=== PATIENT | female | born 1955 | race Caucasian/White ===

== ENCOUNTER → 2019-12-19 14:36 | Outpatient (BNVA) | payer MEDICARE, MEDICAID, SELFPAY | PROVIDERS: PCP Family Medicine; Referring Provider Family Medicine; Visit Provider Internal Medicine Cardiovascular Disease | DX: I10 Essential (primary) hypertension (principal); Z82.49 Family history of ischemic heart disease and other diseases of the circulatory system | CPT/HCPCS: 99212 ==

== ENCOUNTER → 2020-01-29 09:34 | Outpatient (BNVA) | payer MEDICARE, MEDICAID, SELFPAY | PROVIDERS: PCP Family Medicine; Visit Provider Surgery Vascular Surgery | DX: I83.11 Varicose veins of right lower extremity with inflammation (principal) | CPT/HCPCS: 99202 ==

== ENCOUNTER 2020-02-06 10:38 | Outpatient (REF) | payer MEDICARE, MEDICAID, SELFPAY ==
--- NOTE | 2020-02-06 10:43 | US_ITS ---
EXAMINATION: US VENOUS ULTRASOUND WITH DOPPLER LOWER EXTREMITY, BILATERAL CLINICAL INFORMATION: Varicose veins. COMPARISON: None TECHNIQUE: Ultrasound of the deep veins is performed from the hip to the calf with compression sonography and color and pulse Doppler assessment. Spectral analysis with color-flow imaging is performed. FINDINGS: RIGHT: There is normal venous compression and respiratory variation and augmented flow. The visualized common femoral vein, superficial femoral vein, profunda femoral vein, popliteal vein, and the trifurcation region shows no evidence of deep venous thrombosis. There is no significant popliteal fossa cyst. Patient has bilateral ablation of superficial veins. LEFT: There is normal venous compression and respiratory variation and augmented flow. The visualized common femoral vein, superficial femoral vein, profunda femoral vein, popliteal vein, and the trifurcation region shows no evidence of deep venous thrombosis. There is no significant popliteal fossa cyst. History of bilateral ablation of superficial veins. If the patient's symptoms persist, followup ultrasound in 5 days 7 days might be of value to exclude proximal propagation from a non-visualized calf vein. US/US venous duplex LE BI IMPRESSION: No DVT demonstrated. Patient has bilateral ablation thrombosis of superficial veins.
== END 2020-02-06 10:39 | disposition home or self-care (01) ==
LOC: HO.US 10:38
PROVIDERS: PCP Family Medicine; Visit Provider Surgery Vascular Surgery
DX: I83.11 Varicose veins of right lower extremity with inflammation (principal); I83.813 Varicose veins of bilateral lower extremities with pain
CPT/HCPCS: 93970

== ENCOUNTER 2020-03-19 10:28 | Outpatient (REF) | payer MEDICARE, MEDICAID, SELFPAY ==
[2020-03-19 12:34] LABS: MANUAL DIFF FLAG NO
[2020-03-19 12:40] LABS: Basophils Percent Auto 0.4 % (0-2); Eosinophils Percent Auto 0.4 % (0-4); Hematocrit 38.8 % (37-47); Hemoglobin 12.8 g/dl (12.0-16.0); Imm Gran Abs Auto 0.01 X10*3/uL (0.00-0.03); Imm Gran Pct Auto 0.2 % (0.0-0.4); Lymphocytes Absolute Auto 1.4 X10*3/uL (1.2-4.9); Lymphocytes Percent Auto 27.9 % (20-40); Mean Corpuscular Hemoglobin 30.6 pg (27.0-33.0); Mean Corpuscular Volume 92.8 fL (80-98); Mean Platelet Volume 9.4 fL (9.4-12.3); Monocytes Absolute Auto 0.4 X10*3/uL (0.1-1.2); Monocytes Percent Auto 9.1 % (2-11); Platelet Count 284 X10*3/uL (160-400); Red Blood Count 4.18 X10*6/uL (4.20-5.50); Red Cell Distribution Width 12.1 % (11.0-16.0); White Blood Count 4.8 X10*3/uL (4.8-10.8)
[2020-03-19 12:54] LABS: Glucose Urine UA NEG (NEG); Leukocyte Esterase Urine NEG (NEG); Nitrite Urine NEG (NEG); PH 6.5 (5.0-8.0); Specific Gravity - Urine 1.025 (1.005-1.025); Urine Blood NEG (NEG); Urine Ketones NEG (NEG); Urine Protein NEG (NEG-TRACE)
[2020-03-19 12:56] LABS: Appearance Urine CLEAR; Color Urine YELLOW
[2020-03-19 13:08] LABS: Alanine Aminotransferase 18 U/L (0-31); Albumin Level 4.2 g/dL (3.5-5.0); Alkaline Phosphatase 75 U/L (39-117); Anion Gap 12 (12-20); Aspartate Amino Transferase 25 U/L (5-31); Bilirubin Total 1.1 mg/dL (0.0-1.0); Blood Urea Nitrogen 16 mg/dL (9-16); C Reactive Protein 0.19 mg/dL (< or = 0.50); Calcium 9.3 mg/dL (8.4-10.2); Carbon Dioxide 31 mmol/L (22-29); Chloride 99 mmol/L (96-108); Estimated Glomerular Filt Rate > 60; Glucose Random 118 mg/dL (60-115); Potassium 3.8 mmol/L (3.3-5.1); Rheumatoid Factor < 15.0 IU/mL (<15.0); Sodium 138 mmol/L (135-145); Total Protein 7.2 g/dL (6.5-8.0)
[2020-03-19 13:11] LABS: RBC Urine 0 /HPF (0); Squamous Epithelial Cell Urine 1+ /LPF; WBC Urine 0 /HPF (0-4)
[2020-03-19 13:23] LABS: Erythrocyte Sedimentation Rate 8 MM/HR (0-20); Thyroid Stimulating Hormone 1.18 uIU/mL (0.32-4.0)
[2020-03-20 06:28] LABS: Thyroglobulin Antibodies <1 IU/mL (< or = 1); Thyroid Peroxidase Antibodies <1 IU/mL (<9)
[2020-03-20 12:21] LABS: PTT (LAC) Screen 26 sec (< OR = 40)
[2020-03-20 13:33] LABS: Anti DNA DS Antibody 7 IU/mL; Antibody to SS-A Antigen <1.0 NEG AI (<1.0 NEG); Antibody to SS-B Antigen <1.0 NEG AI (<1.0 NEG); Cyclic Citrullinated Peptide <16 UNITS; SM/Ribonucleoprotein Ab <1.0 NEG AI (<1.0 NEG); Smith Protein <1.0 NEG AI (<1.0 NEG)
[2020-03-20 13:57] LABS: Complement C3 85 mg/dL (83-193)
[2020-03-20 16:42] LABS: Beta-2 Microglobulin, Serum 1.89 mg/L (< OR = 2.51)
[2020-03-21 11:12] LABS: Anti Nuclear Antibody Screen NEGATIVE (NEGATIVE)
[2020-03-21 15:56] LABS: Cardiolipin IgG Ab <14 GPL; Cardiolipin IgM Ab <12 MPL
== END 2020-03-19 10:29 | disposition home or self-care (01) ==
LOC: HO.LAB 10:28
PROVIDERS: PCP Family Medicine; Referring Provider Family Medicine; Visit Provider Student in an Organized Health Care Education/Training Program
DX: R76.8 Other specified abnormal immunological findings in serum (principal)
CPT/HCPCS: 36415; 80053; 81001; 82232; 84443; 85025; 85597; 85613; 85652; 85730; 86038; 86039; 86140; 86147; 86160; 86200; 86225; 86235; 86376; 86431; 86800; 99202

== ENCOUNTER → 2020-04-17 14:56 | Outpatient (BNVA) | payer MEDICARE, MEDICAID, SELFPAY | PROVIDERS: PCP Family Medicine; Visit Provider Student in an Organized Health Care Education/Training Program | DX: R76.8 Other specified abnormal immunological findings in serum (principal); Z79.82 Long term (current) use of aspirin; Z87.891 Personal history of nicotine dependence | CPT/HCPCS: 99212 ==

== ENCOUNTER 2020-05-05 07:26 | Outpatient (REF) | payer MEDICARE, MEDICAID, SELFPAY | END 2020-05-05 07:27 | disposition home or self-care (01) | LOC: HO.HOSX 07:26 | PROVIDERS: Visit Provider Orthopaedic Surgery | DX: Z13.89 Encounter for screening for other disorder (principal) ==

== ENCOUNTER 2021-03-11 12:18 | Outpatient (REF) | payer MEDICARE, MEDICAID, SELFPAY ==
--- NOTE | ~2021-03-11 | MM_ITS ---
EXAMINATION: MM SCREENING DIGITAL BREAST TOMOSYNTHESIS, BILATERAL CLINICAL INFORMATION: Screening. Asymptomatic. The lifetime risk of breast cancer based on the Tyrer-Cuzick Model is 6%. COMPARISON: Mammography: 09/17/2019, 09/10/2019, 09/04/2018, 05/25/2017 TECHNIQUE: Digital breast tomosynthesis is performed in both the craniocaudal and mediolateral oblique views along with computer-aided detection (CAD). Synthesized 2D images are generated from the tomosynthesis. FINDINGS: There are scattered areas of fibroglandular density (ACR BI-RADS breast composition Category b). There are no significant masses, abnormal calcifications, or other abnormalities. Parenchymal pattern is similar to prior studies. There is no developing density or architectural abnormality. The axilla and skin contours are unremarkable. No significant changes. MM/MM tomosynthesis screening BI IMPRESSION: No mammographic evidence of malignancy. ASSESSMENT: BI-RADS 1: Negative RECOMMENDATION: Routine annual mammography screening. This patient's information was entered into a reminder system with a target due date for their next mammogram.
== END 2021-03-11 12:19 | disposition home or self-care (01) ==
LOC: HO.MAMMO 12:18
PROVIDERS: PCP Family Medicine; Visit Provider Family Medicine
DX: Z12.31 Encounter for screening mammogram for malignant neoplasm of breast (principal)
CPT/HCPCS: 77063; 77067

== ENCOUNTER 2021-03-16 07:09 | Outpatient (REF) | payer MEDICARE, MEDICAID, SELFPAY ==
--- NOTE | ~2021-03-16 | XR_ITS ---
EXAMINATION: XR SHOULDER , LEFT CLINICAL INFORMATION: Pain COMPARISON: Prior study 2017 TECHNIQUE: AP, scapular Y view and axillary view left shoulder FINDINGS: BONES: There is no fracture or dislocation, no osteolytic or osteoblastic lesion. JOINTS: There are degenerative osteoarthritic changes of the glenohumeral joint. There is mild degenerative osteoarthritis of the acromioclavicular joint. SOFT TISSUE AND INCLUDED LUNG: Normal soft tissue calcification. Included adjacent lungs are clear. XR/XR shoulder LT min 2V IMPRESSION: Progression of now early advanced degenerative osteoarthritis of the glenohumeral and acromioclavicular joints.
== END 2021-03-16 07:10 | disposition home or self-care (01) ==
LOC: HO.HOSX 07:09
PROVIDERS: Visit Provider Physician Assistant
DX: M19.012 Primary osteoarthritis, left shoulder (principal); M54.50 Low back pain, unspecified
CPT/HCPCS: 20610; 73030; 99202; J1040

== ENCOUNTER 2021-04-19 14:46 | Emergency (ER) | payer MEDICARE, MEDICAID, SELFPAY ==
--- NOTE | ~2021-04-19 | CT_ITS ---
EXAMINATION: CT HEAD WITHOUT CONTRAST CT CERVICAL SPINE WITHOUT CONTRAST CT FACIAL BONES WITHOUT CONTRAST CLINICAL INFORMATION: Fall. Head trauma. Left ocular contusion. Pain. COMPARISON: None TECHNIQUE: Contiguous axial imaging was performed from the skull base to vertex without intravenous administration of contrast. Contiguous axial CT images of the cervical spine were obtained without contrast. Contiguous axial CT images of the maxillofacial bones were obtained without contrast. Sagittal and coronal reformats were provided and reviewed. This CT examination was performed using dose optimization techniques as appropriate, variously including the following: *Automated exposure control *Adjustment of mA and/or kV according to patient size (this includes techniques or standardized protocols for targeted exams where dose is matched to indication/reason for exam; i.e. extremities or head) *Use of iterative reconstruction technique DLP: 1537 mGy-cm FINDINGS: HEAD: There is no evidence of acute intracranial hemorrhage or territorial infarction. No abnormal mass effect or midline shift is seen. [place] to white matter differentiation is well preserved. No extra-axial fluid collections are identified. The ventricles are normal in size. There is no abnormal attenuation within the brain parenchyma. Soft tissue swelling/hematoma overlying the left frontal calvarium. No calvarial fracture. The mastoid air cells and visualized portions of the paranasal sinuses are well aerated. CERVICAL SPINE: Reversal of the normal cervical lordosis, which may be positional or related to muscular spasm. Minimal grade 1 anterolisthesis of C3 on C4, which appears chronic. No acute fracture or subluxation. No loss of vertebral body height. Multilevel loss of intervertebral disc height with endplate osteophytes. Prominent multilevel bilateral facet arthropathy. No lytic or blastic osseous lesion. Unremarkable prevertebral soft tissues. No abnormal soft tissue mass or fluid collection. Thyroid within normal limits. Visualized lung apices are clear. Prominent multilevel bilateral neural foraminal stenosis. MAXILLOFACIAL: There is no acute maxillofacial fracture. The pterygoid plates are intact. The zygomatic arches are intact. The lamina papyracea are intact. The orbital rims are intact. Prominent soft tissue swelling and associated soft tissue hematoma as well as laceration overlying the superior aspect of the left orbit. The paranasal sinuses are well-aerated. No air-fluid levels are seen. There is rightward deviation of the nasal septum. The ostiomeatal complexes are clear. The lamina papyracea are intact. The ethmoid roofs are symmetric. The carotid canals are normally covered by bone. There is no maxillary periapical disease. The mastoid air cells and visualized middle ear cavities are well-aerated. The orbits are normal. The TMJs are unremarkable. The imaged portions of the brain demonstrate no acute abnormality. CT/CT cervical spine wo con IMPRESSION: HEAD: No acute intracranial hemorrhage or mass effect. CERVICAL SPINE: No acute fracture or subluxation. Reversal of the normal cervical lordosis, which may be positional. Chronic appearing grade 1 anterolisthesis of C3 on C4. Prominent multilevel degenerative disc disease and bilateral facet arthropathy with multilevel bilateral neural foraminal stenosis. FACIAL BONES: Left frontal/orbital soft tissue hematoma and laceration without adjacent fracture.
--- NOTE | ~2021-04-19 | XR_ITS ---
EXAMINATION: XR CHEST CLINICAL INFORMATION: Dizziness with fall COMPARISON: 07/01/2012 TECHNIQUE: Frontal view of the chest was obtained. FINDINGS: No significant abnormality is noted involving the heart, lungs, mediastinum, bony thorax or soft tissues. Degenerative changes are present in both shoulders progressed since 2012. No fractures. XR/XR chest 1V IMPRESSION: No acute intrathoracic disease.
--- NOTE | 2021-04-19 15:12 | ECG_ITS ---
Test Reason : FALL Blood Pressure : / mmHG Vent. Rate : 077 BPM Atrial Rate : 077 BPM P-R Int : 184 ms QRS Dur : 104 ms QT Int : 400 ms P-R-T Axes : 062 028 068 degrees QTc Int : 452 ms Normal sinus rhythm Normal ECG When compared with ECG of 15-MAY-2013 11:52, No significant change was found Referred By: Jory Bejarano Electronically Signed By:HUSAM HAWLEY MD
[2021-04-19 15:14] VITALS: BP 108/76; BP 141/70; PULSE 74; PULSE 78; RESP 18; TEMP 36.8; O2SAT 97; O2SAT 98; BMI 32.0
[2021-04-19] MEDS: 0.9 % Sodium Chloride 1,000 ML 999 ML IV (15:24)
--- NOTE | 2021-04-19 15:44 | ED.FALL ---
HPI - Fall General Chief Complaint: Fall Stated Complaint: contusion l eye Time Seen by Provider: 04/19/21 14:53 Source: patient and EMS Mode of arrival: EMS History of Present Illness HPI Narrative: 65-year-old female with a past medical history cardiac catheterization, HTN, presenting to the ED complaining of left periorbital swelling/pain & left elbow pain s/p fall at home [employer]. Patient reports was walking down ramp felt dizzy and fell, hitting head, unknown LOC. Also reports fall yesterday, unclear about the events, but admits fell on buttocks, unknown head trauma. Takes baby ASA daily. Denies vision change/loss, neck/back pain, CP/SOB, numbness/tingling MD complaint: fall Onset (ago): hour(s) Related Data Home Medications Medication Instructions Recorded Confirmed aspirin 81 mg tablet,delayed 81 mg PO DAILY 12/19/19 release atorvastatin 20 mg tablet 20 mg PO DAILY 12/19/19 bupropion HCl 300 mg 24 hr tablet, 300 mg PO QAM 12/19/19 extended release cholecalciferol (vitamin D3) 50 50 mcg PO DAILY 12/19/19 mcg (2,000 unit) tablet gabapentin 300 mg capsule 300 mg PO BID 12/19/19 hydrochlorothiazide 25 mg tablet 25 mg PO DAILY 12/19/19 lisinopril 5 mg tablet 5 mg PO DAILY 12/19/19 loratadine 10 mg tablet 10 mg PO DAILY 12/19/19 clonazepam 0.5 mg tablet 1 mg PO BEDTIME tab 03/19/20 Allergies Allergy/AdvReac Type Severity Reaction Status Date / Time pollen Allergy Intermediate Sneezing,co Uncoded 03/16/21 11:51 ngestion Review of Systems Review of Systems: Constitutional: No Fever, No Chills, No Fatigue, No Malaise ENT/Mouth: No Ear Pain, No Nasal Congestion, No sore throat, No Rhinorrhea, No Swallowing Difficulty Eyes: No Eye Pain, + Swelling, No Redness, No Discharge, No Vision Changes Cardiovascular: No Chest Pain, No SOB, No Dyspnea on Exertion, No Edema, No Palpitations Respiratory: No Cough, No Sputum, No Dyspnea Gastrointestinal: No Nausea, No Vomiting, No Diarrhea, No Constipation, No Abdominal pain Genitourinary: No Dysuria, No Urinary Frequency, No Hematuria, No Urinary Incontinence, No Flank Pain, No Urinary Flow Changes Musculoskeletal: +joint pain, No Myalgias, No Joint Swelling Skin: +Skin Lesions, No rash Neuro: No Weakness, No Numbness, No Loss of Consciousness, No Dizziness, +Headache Yes all other systems are reviewed and are negative Neurologic: Denies Abnormal speech present [facility] Past Medical History Attestation statement: The following information was validated with the patient. Medical History NIRAV positive Family history of coronary arteriosclerosis Hypertension Surgical History H/O section History of cardiac cath History of carpal tunnel release History of esophagogastroduodenoscopy (EGD) History of partial hysterectomy History of tubal ligation Family History Family History Father CVD (cardiovascular disease) Mother CVD (cardiovascular disease) Social History Social History Alcohol intake: never Advance Directives: No Advance Directives Information Provided: No Current occupational status: disabled Current occupation: rt handed Physical Exam Vital Signs: Vital Signs: Last Vital Signs Temp 98.2 F 04/19/21 15:14 Pulse 77 04/19/21 16:01 Resp 18 04/19/21 16:01 BP 153/72 H 04/19/21 16:01 Pulse Ox 99 04/19/21 16:01 BMI result Body Mass Index 32.0 Const: General: cooperative, alert and awake Orientation/consciousness: patient oriented x3 Limitations: no limitations HENMT: Other: + left supraorbital hematoma with overlying abrasion and small 1.0cm superficial laceration non needing repair. No palpable step-off. Abrasions to nasal bridge, left cheek, and forehead Ears: hearing grossly normal bilaterally General nose exam: Normal external nose present Face and sinus: Yes ecchymosis Throat: Yes posterior oropharynx normal Eyes: Other: EOMs intact without entrapment or pain. No appreciable ocular involvement General: appearance normal, both eyes and all related structures Pupils: Equal, round and reactive pupils present EOM: EOMs intact bilaterally and EOM normal Direct Ophthalmoscopy: normal light reflex Neck: Other: C-collar in place. No midline cervical spinous tenderness/step-off or deformity Neck: Yes normal visual inspection Chest: Chest palpation & inspection: normal inspection of the chest, no crepitus and no tenderness Resp: Effort & Inspection: normal respiratory effort and no respiratory distress Auscultation: clear to auscultation bilaterally, no rales, no rhonchi and no wheezes Cardio: Rate: regular rate Heart sounds: S1 normal heart sound present and S2 normal heart sound present GI: Inspection: Yes normal to inspection Palpation (GI): Soft to palpation, nontender, no guarding and not rigid : General: Yes no CVA tenderness Back/Spine/Pelvis: Other: No midline thoracic/lumbar or coccygeal spinous tenderness/step-off or deformity. Back: no CVA tenderness Skin: Other: + 2 small abrasions and ecchymosis noted to right buttock Rashes: no rashes Neuro: General: patient oriented x3, tone normal, moves all extremities, no focal motor deficits and CN's II-XI intact bilaterally Cranial nerves: Yes CN's II-XII intact bilaterally, Yes Equal, round and reactive pupils present and Yes Bilaterally intact EOM present Cognition (Neuro): normal cognition Speech: No Abnormal speech present Gait exam (Neuro): Normal gait present Motor exam (neuro): 5/5 motor strength present throughout Extrem: General: Yes normal to inspection and Yes no pedal edema Course Course Course Narrative: -UA negative -1706--no leukocytosis. H&H stable. Labs otherwise unremarkable. COVID-19 negative -troponin 8.2 >> will obtain [address] head/brain wo con IMPRESSION: HEAD: No acute intracranial hemorrhage or mass effect. ? CERVICAL SPINE: No acute fracture or subluxation. Reversal of the normal cervical lordosis, which may be positional. Chronic appearing grade 1 anterolisthesis of C3 on C4. Prominent multilevel degenerative disc disease and bilateral facet arthropathy with multilevel bilateral neural foraminal stenosis. ? FACIAL BONES: Left frontal/orbital soft tissue hematoma and laceration without adjacent fracture. >> discussed with patient PT evaluation/case management at length with daughter at bedside, however she is not agreeable and would like to go home. Patient lives with daughter and granddaughter. Discussed risks recurrent falls, , paralysis, is A&O x3 understands risks of leaving -1800--ED care transferred to NIKOLAS Zhang pending repeat troponin @1938, CXR and orthostatics. Dispo per results, but anticipated DC home as patient not agreeable to stay and does not meet inpatient criteria MDM - Fall MDM Narrative Medical decision making narrative: 65-year-old female with a past medical history cardiac catheterization, HTN, presenting to the ED complaining of left periorbital swelling/pain & left elbow pain s/p fall at home [employer]. Patient reports was walking down ramp felt dizzy and fell, hitting head, unknown LOC. On exam vital signs stable, NAD, physical exam as above. Concern for ICH versus fractures. No midline spinous tenderness throughout, no red flag symptoms. Concern for ACS vs metabolic vs infectious etiologies causing dizziness. Left eyebrow small laceration not needing repair. Tetanus up-to-date Plan: EKG, labs, UA, CXR, head/facial/cervical spine CT, orthostatics, re-evaluate Differential Diagnosis Differential diagnosis: Likely syncope, concussion with loss of consciousness and concussion without loss of consciousness Medical Records Attestation: I reviewed the patient's medical records. Lab Data Attestation: I reviewed the patient's lab results. Result diagrams: 04/19/21 16:38 04/19/21 16:38 Labs: Lab Results 04/19/21 04/19/21 04/19/21 Range/Units 16:05 16:05 16:38 WBC 8.7 (4.8-10.8) X10*3/uL RBC 3.91 L (4.20-5.50) X10*6/uL Hgb 12.1 (12.0-16.0) g/dl Hct 36.8 L (37.0-47.0) % MCV 94.1 (80.0-98.0) fL MCH 30.9 (27.0-33.0) pg MCHC 32.9 (31.0-35.0) g/dl RDW 12.3 (11.0-16.0) % Plt Count 281 (160-400) X10*3/uL MPV 9.0 L (9.4-12.3) fL Immature Gran % (Auto) 0.2 (0.0-0.4) % Neut % (Auto) 73.5 H (45-73) % Lymph % (Auto) 17.5 L (20-40) % [place] % (Auto) 8.0 (2-11) % Eos % (Auto) 0.5 (0-4) % Baso % (Auto) 0.3 (0-2) % Lymph # (Auto) 1.5 (1.2-4.9) X10*3/uL [place] # (Auto) 0.7 (0.1-1.2) X10*3/uL Eos # (Auto) 0.0 (0.0-0.4) X10*3/uL Baso # (Auto) 0.0 (0.0-0.2) X10*3/uL Abs Immat Gran (auto) 0.02 (0.00-0.03) X10*3/uL Absolute Neuts (auto) 6.4 (2.0-8.3) x10*3/uL Absolute Nucleated RBC 0.000 (0.0-0.012) X10*3/uL Nucleated RBC % (auto) 0.0 (0.0-0.2) /100WBC PT (9.9-13.0) SEC INR (0.9-1.1) APTT (24.1-38.0) SEC Sodium (135-145) mmol/L Potassium (3.3-5.1) mmol/L Chloride (96-108) mmol/L Carbon Dioxide (22-29) mmol/L Anion Gap (12-20) BUN (9-16) mg/dL Creatinine (0.5-1.4) mg/dL Estim Creat Clear Calc Estimated GFR Random Glucose (60-115) mg/dL Calcium (8.4-10.2) mg/dL Magnesium (1.6-2.6) mg/dL Total Bilirubin (0.0-1.0) mg/dL Direct Bilirubin (0.0-0.5) mg/dL AST (5-31) U/L ALT (0-31) U/L Alkaline Phosphatase (39-117) U/L Troponin I High Sens (<3.5-17.0) ng/L Total Protein (6.5-8.0) g/dL Albumin (3.5-5.0) g/dL Urine Color YELLOW Urine Appearance CLEAR Urine pH 6.5 (5.0-8.0) Ur Specific Devon 1.020 (1.005-1.025) Urine Protein TRACE (NEG-TRACE) MG/DL Urine Glucose (UA) NEG (NEG) MG/DL Urine Ketones NEG (NEG) MG/DL Urine Blood NEG (NEG) Urine Nitrite NEG (NEG) Ur Leukocyte Esterase NEG (NEG) COVID-19 (JAMARI) Negative (Negative) COVID-19 Clin Com See Note 04/19/21 04/19/21 04/19/21 Range/Units 16:38 16:38 16:38 WBC (4.8-10.8) X10*3/uL RBC (4.20-5.50) X10*6/uL Hgb (12.0-16.0) g/dl Hct (37.0-47.0) % MCV (80.0-98.0) fL MCH (27.0-33.0) pg MCHC (31.0-35.0) g/dl RDW (11.0-16.0) % Plt Count (160-400) X10*3/uL MPV (9.4-12.3) fL Immature Gran % (Auto) (0.0-0.4) % Neut % (Auto) (45-73) % Lymph % (Auto) (20-40) % [place] % (Auto) (2-11) % Eos % (Auto) (0-4) % Baso % (Auto) (0-2) % Lymph # (Auto) (1.2-4.9) X10*3/uL [place] # (Auto) (0.1-1.2) X10*3/uL Eos # (Auto) (0.0-0.4) X10*3/uL Baso # (Auto) (0.0-0.2) X10*3/uL Abs Immat Gran (auto) (0.00-0.03) X10*3/uL Absolute Neuts (auto) (2.0-8.3) x10*3/uL Absolute Nucleated RBC (0.0-0.012) X10*3/uL Nucleated RBC % (auto) (0.0-0.2) /100WBC PT 11.3 (9.9-13.0) SEC INR 1.0 (0.9-1.1) APTT 33.6 (24.1-38.0) SEC Sodium 140 (135-145) mmol/L Potassium 4.3 (3.3-5.1) mmol/L Chloride 103 (96-108) mmol/L Carbon Dioxide 33 H (22-29) mmol/L Anion Gap 8 L (12-20) BUN 10 (9-16) mg/dL Creatinine 0.68 (0.5-1.4) mg/dL Estim Creat Clear Calc 78.4 Estimated GFR > 60 Random Glucose 85 (60-115) mg/dL Calcium 9.2 (8.4-10.2) mg/dL Magnesium 2.1 (1.6-2.6) mg/dL Total Bilirubin 0.4 (0.0-1.0) mg/dL Direct Bilirubin 0.2 (0.0-0.5) mg/dL AST 16 (5-31) U/L ALT 13 (0-31) U/L Alkaline Phosphatase 89 (39-117) U/L Troponin I High Sens 8.2 (<3.5-17.0) ng/L Total Protein 6.4 L (6.5-8.0) g/dL Albumin 3.7 (3.5-5.0) g/dL Urine Color Urine Appearance Urine pH (5.0-8.0) Ur Specific Devon (1.005-1.025) Urine Protein (NEG-TRACE) MG/DL Urine Glucose (UA) (NEG) MG/DL Urine Ketones (NEG) MG/DL Urine Blood (NEG) Urine Nitrite (NEG) Ur Leukocyte Esterase (NEG) COVID-19 (JAMARI) (Negative) COVID-19 Clin Com Discharge Plan Discharge Clinical Impression: Periorbital hematoma of left eye, Multiple falls, Dizziness, Abrasion Patient Disposition: Still a Patient Instructions: Dizziness (ED), Fall Prevention (ED), Hematoma (ED) Additional Instructions: A CT scan of your head, neck, and facial bones show a left frontal/orbital hematoma and cut, otherwise no fractures or bleeding. Your blood work is reassuring. Her urine is not infected. We recommended you stay for physical therapy evaluation however you refused Please make sure your in taking plenty of fluids at home. Please walk with her walker. Please follow-up with her primary care doctor in 1-2 days. If you continue to feel dizzy, have recurrent falls, developed chest pain, shortness breath, headache please return to the ED immediately Apply bacitracin or Neosporin to her wounds Prescriptions: No Action loratadine 10 mg tablet 10 mg PO DAILY 0RF gabapentin 300 mg capsule 300 mg PO BID 0RF cholecalciferol (vitamin D3) 50 mcg (2,000 unit) tablet 50 mcg PO DAILY 0RF bupropion HCl 300 mg tablet extended release 24 hr 300 mg PO QAM 0RF hydrochlorothiazide 25 mg tablet 25 mg PO DAILY 0RF lisinopril 5 mg tablet 5 mg PO DAILY 0RF aspirin 81 mg tablet,delayed release (DR/EC) 81 mg PO DAILY 0RF atorvastatin 20 mg tablet 20 mg PO DAILY 0RF clonazepam 0.5 mg tablet 1 mg PO BEDTIME 0RF Referrals: Claudia Baum DO [Primary Care Provider] - 2 days
[2021-04-19 16:01] VITALS: BP 153/72; PULSE 77; RESP 18; O2SAT 99
[2021-04-19 16:16] LABS: Appearance Urine CLEAR; Color Urine YELLOW; Glucose Urine UA NEG (NEG); Leukocyte Esterase Urine NEG (NEG); Nitrite Urine NEG (NEG); PH 6.5 (5.0-8.0); Urine Blood NEG (NEG); Urine Ketones NEG (NEG); Urine Protein TRACE MG/DL (NEG-TRACE)
[2021-04-19 16:37] LABS: COVID-19 Test Negative (Negative); IDNOW Serial# 16C4AD1C
[2021-04-19 16:44] LABS: MANUAL DIFF FLAG NO
[2021-04-19 16:45] LABS: Basophils Percent Auto 0.3 % (0-2); Eosinophils Percent Auto 0.5 % (0-4); Hematocrit 36.8 % (37.0-47.0); Hemoglobin 12.1 g/dl (12.0-16.0); Imm Gran Abs Auto 0.02 X10*3/uL (0.00-0.03); Imm Gran Pct Auto 0.2 % (0.0-0.4); Lymphocytes Absolute Auto 1.5 X10*3/uL (1.2-4.9); Lymphocytes Percent Auto 17.5 % (20-40); Mean Corpuscular HGB Conc 32.9 g/dl (31.0-35.0); Mean Corpuscular Hemoglobin 30.9 pg (27.0-33.0); Mean Corpuscular Volume 94.1 fL (80.0-98.0); Monocytes Absolute Auto 0.7 X10*3/uL (0.1-1.2); Neutrophils Absolute Auto 6.4 x10*3/uL (2.0-8.3); Neutrophils Percent Auto 73.5 % (45-73); Platelet Count 281 X10*3/uL (160-400); Red Blood Count 3.91 X10*6/uL (4.20-5.50); Red Cell Distribution Width 12.3 % (11.0-16.0); White Blood Count 8.7 X10*3/uL (4.8-10.8)
[2021-04-19 16:52] LABS: Prothrombin Time 11.3 SEC (9.9-13.0)
[2021-04-19 16:55] LABS: Partial Thromboplastin Time 33.6 SEC (24.1-38.0)
[2021-04-19 17:03] LABS: Alanine Aminotransferase 13 U/L (0-31); Albumin Level 3.7 g/dL (3.5-5.0); Alkaline Phosphatase 89 U/L (39-117); Anion Gap 8 (12-20); Aspartate Amino Transferase 16 U/L (5-31); Bilirubin Direct 0.2 mg/dL (0.0-0.5); Bilirubin Total 0.4 mg/dL (0.0-1.0); Blood Urea Nitrogen 10 mg/dL (9-16); Calcium 9.2 mg/dL (8.4-10.2); Carbon Dioxide 33 mmol/L (22-29); Chloride 103 mmol/L (96-108); Creatinine Clr Calc Pharmacy 78.4; Estimated Glomerular Filt Rate > 60; Glucose Random 85 mg/dL (60-115); Magnesium 2.1 mg/dL (1.6-2.6); Potassium 4.3 mmol/L (3.3-5.1); Sodium 140 mmol/L (135-145); Total Protein 6.4 g/dL (6.5-8.0)
[2021-04-19 17:08] LABS: Troponin-I High Sensitivity 8.2 ng/L (<3.5-17.0)
[2021-04-19] MEDS: Acetaminophen 325 MG TABLET 975 MG PO (18:34)
[2021-04-19 18:47] VITALS: BP 140/66; PULSE 83
[2021-04-19 18:49] VITALS: BP 143/73; PULSE 80
[2021-04-19 18:51] VITALS: BP 148/70; PULSE 81
[2021-04-19 21:45] LABS: Troponin-I High Sensitivity 8.6 ng/L (<3.5-17.0)
== END 2021-04-19 22:07 | disposition home or self-care (01) ==
PROVIDERS: Physician Assistant; Emergency Provider Internal Medicine; PCP Family Medicine
DX: S05.12XA Contusion of eyeball and orbital tissues, left eye, initial encounter (principal); S10.91XA Abrasion of unspecified part of neck, initial encounter; H57.12 Ocular pain, left eye; R42 Dizziness and giddiness; M54.2 Cervicalgia; G44.309 Post-traumatic headache, unspecified, not intractable; W01.0XXA Fall on same level from slipping, tripping and stumbling without subsequent striking against object, initial encounter; Y93.9 Activity, unspecified; Y92.9 Unspecified place or not applicable; Y99.9 Unspecified external cause status; Z20.822 Contact with and (suspected) exposure to COVID-19; Z79.899 Other long term (current) drug therapy
CPT/HCPCS: 36415; 70450; 70486; 71045; 72125; 80048; 80076; 81003; 83735; 84484; 85025; 85610; 85730; 87635; 93005; 99284

== ENCOUNTER 2021-04-21 13:19 | Outpatient (REF) | payer MEDICARE, MEDICAID, SELFPAY ==
--- NOTE | ~2021-04-21 | XR_ITS ---
EXAMINATION: XR SHOULDER, LEFT CLINICAL INFORMATION: Left shoulder pain COMPARISON: Radiographs left shoulder 03/16/2021, 08/05/2016 TECHNIQUE: Radiographs of the left shoulder are obtained in 5 views. FINDINGS: There is no acute or healing fracture, dislocation, destructive process. Prominent osteoarthritic changes involve the glenohumeral joint with joint narrowing and subchondral sclerosis. There are osteophytes involving the humeral head and inferior medial and near the greater tuberosity. Lesser degenerative changes involve the acromioclavicular joint. The acromioclavicular alignment is normal. There are no visible rotator cuff calcifications. Left lung apex is well expanded and shows no pneumothorax or pleural reaction. There are prominent asymmetric bridging osteophytes right lateral thoracic spine again seen. XR/XR shoulder LT min 2V IMPRESSION: 1. Prominent osteoarthritis glenohumeral joint. 2. Mild osteoarthritic changes acromioclavicular joint.
== END 2021-04-21 13:20 | disposition home or self-care (01) ==
LOC: HO.XRAY 13:19
PROVIDERS: PCP Family Medicine; Visit Provider Family Medicine
DX: M25.512 Pain in left shoulder (principal)
CPT/HCPCS: 73030

== ENCOUNTER → 2021-05-12 11:48 | Outpatient (BNVA) | payer MEDICARE, MEDICAID, SELFPAY | PROVIDERS: PCP Family Medicine; Visit Provider Surgery Vascular Surgery | DX: I83.11 Varicose veins of right lower extremity with inflammation (principal) | CPT/HCPCS: 99212 ==

== ENCOUNTER 2021-06-02 14:11 | Outpatient (REF) | payer MEDICARE, MEDICAID, SELFPAY ==
--- NOTE | ~2021-06-02 | US_ITS ---
EXAMINATION: US EXTRACRANIAL CAROTID DUPLEX, BILATERAL CLINICAL INFORMATION: This is a 65-year-old female with dizziness and giddiness. Carotid artery disease. COMPARISON: None TECHNIQUE: Real-time ultrasound and Doppler techniques (integrating B-mode 2-D vascular images, Doppler spectral analysis and color-flow Doppler imaging) were utilized to interrogate the extracranial carotid arteries, the vertebral arteries and proximal subclavian arteries bilaterally. The degree of stenosis is determined by criteria similar to NASCET. FINDINGS: Right Side: 1. There is minimal atherosclerotic plaque seen in the bifurcation/proximal ICA region. 2. The common carotid artery PSV proximally is 86 cm/s and distally 48 cm/s. 3. The proximal internal carotid artery velocities are 67 cm/s systolic and 23 cm/s diastolic. 4. The proximal external carotid artery PSV is 93 cm/s. 5. The vertebral artery shows antegrade flow. 6. The subclavian artery waveforms are normal. Left Side: 1. There is minimal atherosclerotic plaque seen in the bifurcation/proximal ICA region. 2. The common carotid artery PSV proximally is 73 cm/s and distally 48 cm/s. 3. The proximal internal carotid artery velocities are 48 cm/s systolic and 16 cm/s diastolic. 4. The proximal external carotid artery PSV is 68 cm/s. 5. The vertebral artery shows antegrade flow. 6. The subclavian artery waveforms are normal. US/US carotid duplex BI IMPRESSION: 1. RIGHT: Minimal, non-hemodynamically significant stenosis of the proximal right internal carotid artery corresponding to a 0-49% stenosis by velocity criteria. 2. LEFT: Minimal, non-hemodynamically significant stenosis of the proximal left internal carotid artery corresponding to a 0-49% stenosis by velocity criteria.
--- NOTE | ~2021-06-02 | US_ITS ---
EXAMINATION: US LOWER EXTREMITY VENOUS (REFLUX EXAM), BILATERAL CLINICAL INDICATION: This is a 65-year-old female with venous insufficiency and varicose veins. The patient status post ablation. COMPARISON: None. TECHNIQUE: Color flow triplex imaging and compression Doppler was performed to evaluate both the deep and the superficial systems bilaterally. To evaluate the superficial system, the examination was performed in the upright position. Color-flow Doppler ultrasound and compression ultrasound were utilized. In addition, maneuvers were utilized to demonstrate reflux. FINDINGS: 1. DEEP VENOUS ULTRASOUND OF THE RIGHT LOWER EXTREMITY: Common Femoral Vein: Compressible, normal respiratory variation and augmented flow. Femoral vein: Compressible, normal color flow and augmentation. Popliteal Vein: Compressible, normal augmentation. Deep Reflux: There is no evidence of reflux in the deep system in either the common femoral vein or the popliteal vein. There is no evidence of a Sanchez's cyst. 2. SUPERFICIAL ULTRASOUND WITH DOPPLER OF RIGHT LOWER EXTREMITY: GREAT SAPHENOUS VEIN: Saphenofemoral Junction: 0.4 cm. There is no reflux. Mid Thigh: Not seen and possibly previously treated. Above Knee: Occluded consistent with previous ablation. Below Knee: Occluded consistent with previous ablation. Mid Calf: 0.2 cm. The reflux time is 1408 ms. Ankle: 0.2 cm. There is no reflux. GSV REFLUX: Portions of the right great saphenous vein are occluded. There is no significant reflux at the junction. DUPLICATED GREAT SAPHENOUS VEIN: None SMALL SAPHENOUS VEIN: Proximal: 0.3 cm Distal: 0.4 cm SSV REFLUX: No evidence of reflux. VEIN OF GIACOMINI: None Imaged. PERFORATORS: None Imaged VARICOSITIES: There are 0.2 cm varicose veins at the knee and the mid calf, respectively with greater than 2000 ms of reflux. 3. DEEP VENOUS ULTRASOUND OF THE LEFT LOWER EXTREMITY: Common Femoral Vein: Compressible, normal respiratory variation and augmented flow. Femoral Vein: Compressible, normal color flow and augmentation. Popliteal Vein: Compressible, normal augmentation. Deep Reflux: There is no evidence of reflux in the deep system in either the common femoral vein or the popliteal vein. There is no evidence of a Sanchez's cyst. 4. SUPERFICIAL ULTRASOUND WITH DOPPLER OF LEFT LOWER EXTREMITY: GREAT SAPHENOUS VEIN: Saphenofemoral Junction: 0.6 cm. There is no reflux. Mid Thigh: 0.3 cm. The reflux time is 3240 ms. Above Knee: 0.1 cm. There is no reflux. Below Knee: 0.1 cm. There is no reflux. Mid Calf: 0.2 cm. The reflux time is 3004 ms. Ankle: 0.1 cm. The reflux time is 1808 ms. GSV REFLUX: There is no reflux at the saphenofemoral junction. The great saphenous vein is occluded at the knee consistent with previous treatment. There is isolated reflux in the mid thigh. DUPLICATED GREAT SAPHENOUS VEIN: None SMALL SAPHENOUS VEIN: Proximal: 0.2 cm. There is no reflux to Distal: 0.2 cm. The reflux time is 3224 ms. SSV REFLUX: There is isolated mid calf and distal calf reflux but not at the junction. VEIN OF GIACOMINI: None Imaged. PERFORATORS: There is a 0.3 cm validation architect with reflux of 2852 ms. VARICOSITIES: There are 0.3 cm proximal thigh varicose veins without reflux. US/US venous duplex LE BI IMPRESSION: 1. There are portions of the right great saphenous vein which appear successfully treated and occluded. The proximal right great saphenous vein is patent without reflux at the junction. 2. The right small saphenous vein is patent without reflux. 3. There are varicose veins at the knee and calf with greater than 2 seconds of reflux. 4. There are segments of the left great saphenous vein which appear occluded consistent with previous treatment. There is no reflux seen at the junction. 5. There is a patent left small saphenous vein without reflux at the junction. The mid and distal left small saphenous vein demonstrate reflux. 6. There are proximal thigh varicose veins measuring 0.3 cm without reflux.
== END 2021-06-02 14:12 | disposition home or self-care (01) ==
LOC: HO.US 14:11
PROVIDERS: PCP Family Medicine; Visit Provider Family Medicine
DX: I83.11 Varicose veins of right lower extremity with inflammation (principal); R42 Dizziness and giddiness
CPT/HCPCS: 93880; 93970

== ENCOUNTER → 2021-06-11 13:31 | Outpatient (BNVA) | payer MEDICARE, MEDICAID, SELFPAY | PROVIDERS: PCP Family Medicine; Visit Provider Surgery Vascular Surgery | DX: I83.12 Varicose veins of left lower extremity with inflammation (principal) | CPT/HCPCS: 99212 ==

== ENCOUNTER → 2021-06-18 14:04 | Outpatient (REF) | payer MEDICARE, MEDICAID, SELFPAY ==
--- NOTE | 2021-06-18 14:07 | CA_ITS ---
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 Normal LV systolic function with impaired relaxation filling pattern 2. Normal cardiac valvular Doppler 3. Normal RV systolic pressure 4. No gross pericardial effusion Findings Left Ventricle Normal left ventricular size, thickness, and systolic function. The visually estimated ejection fraction is between 60-65%. Spectral Doppler is indicative of an impaired relaxation filling pattern. E/E prime ratio is between 8 and 15 consistent with indeterminate filling pressures. Right Ventricle Normal right ventricular cavity size and systolic function. Atria The left atrium is normal in size. Interatrial shunt cannot be excluded. The right atrium is normal in size. Aortic Valve The aortic valve was not well visualized. There is no aortic valve stenosis. There is no aortic valve regurgitation. Mitral Valve There is mild anterior and posterior mitral leaflet thickening. There is trace mitral valve regurgitation. There is no mitral valve stenosis. Pulmonic Valve The pulmonic valve was not well visualized. Tricuspid Valve Likely normal tricuspid valve structure and function. There is trace tricuspid valve regurgitation. The right ventricular systolic pressure is normal. Normal right atrial pressure. There is no evidence of pulmonary hypertension. Great Vessels All visible segments of the aorta are normal in size. The pulmonary artery was not well visualized. Venous The inferior vena cava is normal in size and collapses greater than 50% with inspiration. Pericardium/Pleural There is no evidence of pericardial effusion. Prior Study Comparison Changes noted compared to prior study dated: 11/23/2016. LV diastolic dysfunction suggest impaired relaxation filling pattern Measurements 2D Linear Measurements IVSd: 1.00 0.6-0.9/0.6-1.0 cm LVIDd: 4.62 3.9-5.3/4.2-5.9 cm LVIDd Index: 2.63 2.4-3.2/2.2-3.1 cm/m2 LVIDs: 3.08 2.0-3.6 cm LVPWd: 1.14 0.7-1.1 cm LA Diam: 3.00 2.7-3.8/3.0-4.0 cm LAIDs Index: 1.70 1.5-2.3 cm/m2 LV Mass: 218.72 67-162/88-224 g LV Mass Index: 124.27 43-95/49-115 g/m2 LVOT Diam: 2.10 3.0+(-)1.3 cm 2D Systolic Function EF 4C: 60.10 >55% EF 2C: 62.80 >55% EF BiP: 61.30 >55% Mitral Valve MV Pk E: 0.86 MV PK A: 1.06 MV Decel Time: 271.00 E/A: 0.80 E'Lateral: 7.29 E'Medial: 7.40 E/E' Med: 11.60 E/E' Lat: 11.80 PHT: 79.00 MVA PHT: 2.78 Decel Dodge: 3.17 Aortic Valve AoV Pk Jese: 1.87 AoV Mn Jese: 1.34 AoV VTI: 0.38 AoV Pk Grad: 14.00 Aov Mn Grad: 8.00 JUAN Cont.VTI: 2.43 LVOT LVOT Pk Jese: 1.12 LVOT Mn Jese: 0.87 LVOT VTI: 0.26 LVOT Pk Grad: 5.00 LVOT Mn Grad: 3.00 LVOT Diam: 2.10 LVOT Area: 3.46 Diastolic Function MV Pk E: 0.86 MV Pk A: 1.06 E/A: 0.80 E'Medial: 7.40 E/E' Med: 11.60 E' Laterial: 7.29 E/E' Lat: 11.80 Right Ventricle TAPSE (mm): 21.90 TVS' Jese: 15.10 Tricuspid Valve TR Pk Jese: 2.47 TR Pk Grad: 24.00 RA Press: 3.00 RVSP: 27.00 Great Vessels Aorta Sinus of Valsalva: 3.33 2.0-3.[address] Ridge: 2.55 1.7-3.4 cm Ao Asc: 3.50 2.1-3.4 cm Ao Arch: 2.90 Updated in Other Vendor System with Status of Final Raleigh Stuart MD electronically signed on 06/19/2021 1:50:16 PM with status of Final
== END ==
LOC: HO.CARD 14:04
PROVIDERS: Visit Provider Family Medicine
DX: R42 Dizziness and giddiness (principal)
CPT/HCPCS: 93306

== ENCOUNTER → 2021-07-03 07:53 | Outpatient (BNVA) | payer MEDICARE, MEDICAID, SELFPAY | PROVIDERS: PCP Family Medicine; Visit Provider Surgery Vascular Surgery | DX: I83.12 Varicose veins of left lower extremity with inflammation (principal) | CPT/HCPCS: 36475 ==

== ENCOUNTER 2021-07-06 14:09 | Outpatient (REF) | payer MEDICARE, MEDICAID, SELFPAY ==
--- NOTE | ~2021-07-06 | US_ITS ---
EXAMINATION: US VENOUS ULTRASOUND WITH DOPPLER LOWER EXTREMITY, LEFT CLINICAL INFORMATION: Post RF ablation 06/26/2021 COMPARISON: Previous exam most recent May 2021 TECHNIQUE: Ultrasound of the deep veins is performed from the hip to the calf with compression sonography and color and pulse Doppler assessment. Spectral analysis with color-flow imaging is performed. FINDINGS: There is normal venous compression and respiratory variation and augmented flow. The visualized common femoral vein, superficial femoral vein, profunda femoral vein, popliteal vein, and the trifurcation region shows no evidence of deep venous thrombosis. There is no significant popliteal fossa cyst. There is echogenic material seen in the left lesser saphenous vein. This is 3.2 cm from the saphenofemoral popliteal junction. The left lesser saphenous vein is closed. US/US venous duplex LE IMPRESSION: No DVT demonstrated in the left lower extremity.
== END 2021-07-06 14:10 | disposition home or self-care (01) ==
LOC: HO.US 14:09
PROVIDERS: Visit Provider Surgery Vascular Surgery
DX: M79.605 Pain in left leg (principal)
CPT/HCPCS: 93971

== ENCOUNTER → 2021-07-16 10:54 | Outpatient (BNVA) | payer MEDICARE, MEDICAID, SELFPAY | PROVIDERS: PCP Family Medicine; Visit Provider Surgery Vascular Surgery | DX: I83.12 Varicose veins of left lower extremity with inflammation (principal); Z98.890 Other specified postprocedural states | CPT/HCPCS: 99212 ==

== ENCOUNTER → 2021-07-23 12:40 | Outpatient (BNVA) | payer MEDICARE, MEDICAID, SELFPAY | PROVIDERS: PCP Family Medicine; Visit Provider Physician Assistant | DX: K21.9 Gastro-esophageal reflux disease without esophagitis (principal); R11.0 Nausea | CPT/HCPCS: 99202; 99212 ==

== ENCOUNTER 2021-09-14 10:18 | Outpatient (REF) | payer MEDICARE, MEDICAID, SELFPAY ==
[2021-09-14 11:02] LABS: Hematocrit 39.7 % (37.0-47.0); Hemoglobin 12.7 g/dl (12.0-16.0); Mean Corpuscular Hemoglobin 29.7 pg (27.0-33.0); Mean Corpuscular Volume 92.8 fL (80.0-98.0); Platelet Count 290 X10*3/uL (160-400); Red Blood Count 4.28 X10*6/uL (4.20-5.50); Red Cell Distribution Width 12.5 % (11.0-16.0)
[2021-09-14 11:10] LABS: Estimated Average Glucose 111 mg/dL; Hemoglobin A1c % 5.5 %
[2021-09-14 11:36] LABS: Alanine Aminotransferase 13 U/L (0-31); Alkaline Phosphatase 90 U/L (39-117); Anion Gap 13 (12-20); Aspartate Amino Transferase 17 U/L (5-31); Bilirubin Direct 0.2 mg/dL (0.0-0.5); Bilirubin Total 0.5 mg/dL (0.0-1.0); Blood Urea Nitrogen 10 mg/dL (9-16); Calcium 9.6 mg/dL (8.4-10.2); Carbon Dioxide 32 mmol/L (22-29); Chloride 101 mmol/L (96-108); Cholesterol 159 mg/dL; Estimated Glomerular Filt Rate > 60; Glucose Random 101 mg/dL (60-115); HDL Cholesterol 52 mg/dL; LDL Cholesterol Calculated 88 mg/dl; Potassium 4.9 mmol/L (3.3-5.1); Sodium 141 mmol/L (135-145); Total Protein 7.2 g/dL (6.5-8.0); Triglycerides 97 mg/dL
[2021-09-14 12:02] LABS: Free T4 (Free Thyroxine) 0.94 ng/dL (0.71-1.85); Thyroid Stimulating Hormone 2.02 uIU/mL (0.32-4.0); Vitamin D 25-OH Total 41.4 ng/mL (>30)
[2021-09-14 13:55] LABS: Microalbum/Creatinine Ratio Ur 6.2 ug/mg cr
== END 2021-09-14 10:19 | disposition home or self-care (01) ==
LOC: HO.LAB 10:18
PROVIDERS: PCP Family Medicine; Visit Provider Family Medicine
DX: E78.5 Hyperlipidemia, unspecified (principal); I10 Essential (primary) hypertension
CPT/HCPCS: 36415; 80048; 80061; 80076; 82043; 82306; 83036; 84439; 84443; 85027

== ENCOUNTER 2021-09-22 13:52 | Outpatient (REF) | payer MEDICARE, MEDICAID, SELFPAY ==
--- NOTE | ~2021-09-22 | CT_ITS ---
EXAMINATION: CT ABDOMEN AND PELVIS WITH CONTRAST CLINICAL INFORMATION: Epigastric pain. GERD. COMPARISON: Portions of a CT 04/03/2013. TECHNIQUE: Multidetector volumetric images were obtained from the superior aspect of the liver through the pubic symphysis following administration 85 mL of Omnipaque 350 intravenous contrast. Sagittal and coronal reformatted images were obtained on the technologist's workstation. Oral contrast: Yes This CT examination was performed using dose optimization techniques as appropriate, variously including the following: *Automated exposure control *Adjustment of mA and/or kV according to patient size (this includes techniques or standardized protocols for targeted exams where dose is matched to indication/reason for exam; i.e. extremities or head) *Use of iterative reconstruction technique DLP: 444 mGy-cm. FINDINGS: Artifact related to motion and patient habitus. LUNG BASES: There is extensive coronary artery calcification. No suspicious abnormality in the visualized lung bases. LIVER, GALLBLADDER, AND BILIARY TREE: The liver contour is smooth. No suspicious focal liver lesion. There is no opaque gallstone. There is no biliary dilation. PANCREAS: No pancreatic mass. No localized peripancreatic stranding. SPLEEN: Within normal limits. ADRENAL GLANDS: The right adrenal is within normal limits. Mild unchanged left adrenal fullness. KIDNEYS AND URETERS: There is no opaque urinary calculus. There is an approximately 3.2 cm circumscribed fluid attenuating area in the central portion of the left kidney. I favor a parapelvic cyst. This was likely present in 2013. BLADDER: No suspicious bladder abnormality. GASTROINTESTINAL TRACT: There are numerous sigmoid diverticula. There is some muscular wall thickening within the sigmoid. There is no localized pericolonic fat stranding. Fecal residue within the proximal and mid colon. Oral contrast is present within the mid colon. Contrast-filled normal caliber small bowel loops appear appropriately distributed. The stomach is not well evaluated and not well distended. ABDOMINAL WALL: There is a fat-containing right inguinal hernia. LYMPH NODES: There are no measurably enlarged abdominal or pelvic lymph nodes. There is no significant free intraperitoneal fluid. VASCULAR: There is atherosclerotic calcification. There is no abdominal aortic aneurysm. The portal vein enhances. Previous demonstration of reflux of contrast in the left canal vein. PELVIC VISCERA: No suspicious abnormality of the uterus or adnexa. As described, there is likely some reflux into the left canal vein. OSSEOUS STRUCTURES: No suspicious focal lesion. There is degenerative change in the lumbar region with disc narrowing and central canal and foraminal narrowing. CT/CT abdomen pelvis w con IMPRESSION: There is no acute abnormality demonstrated. Sigmoid diverticula without specific evidence of acute diverticulitis. No evidence of urinary, biliary or GI tract obstruction. Fleischner guidelines were followed.
[2021-09-22] MEDS: iohexoL 350 MG/ML 100 ML INFUS..BTL IV (17:29)
[2021-09-22] MEDS: Barium Sulfate Oral (Vanilla) 450 ML ORAL.SUSP 900 ML PO (17:29)
== END 2021-09-22 13:53 | disposition home or self-care (01) ==
LOC: HO.CT 13:52
PROVIDERS: PCP Family Medicine; Visit Provider Family Medicine
DX: R10.13 Epigastric pain (principal); K21.9 Gastro-esophageal reflux disease without esophagitis
CPT/HCPCS: 74177; Q9967

== ENCOUNTER → 2021-10-29 13:27 | Outpatient (BNVA) | payer MEDICARE, MEDICAID, SELFPAY | PROVIDERS: PCP Family Medicine; Referring Provider Family Medicine; Visit Provider Nurse Practitioner Family | DX: I10 Essential (primary) hypertension (principal); R94.39 Abnormal result of other cardiovascular function study; R76.8 Other specified abnormal immunological findings in serum; Z82.49 Family history of ischemic heart disease and other diseases of the circulatory system; Z98.890 Other specified postprocedural states | CPT/HCPCS: 99212 ==

== ENCOUNTER → 2022-02-11 13:08 | Outpatient (BNVA) | payer MEDICARE, MEDICAID, SELFPAY | PROVIDERS: PCP Family Medicine; Visit Provider Urology | DX: N32.81 Overactive bladder (principal); N39.41 Urge incontinence | CPT/HCPCS: 51798; 99202 ==

== ENCOUNTER 2022-03-24 13:01 | Outpatient (REF) | payer MEDICARE, MEDICAID, SELFPAY ==
--- NOTE | ~2022-03-24 | MM_ITS ---
EXAMINATION: MM SCREENING DIGITAL BREAST TOMOSYNTHESIS, BILATERAL CLINICAL INFORMATION: Screening. Asymptomatic. The lifetime risk of breast cancer based on the Tyrer-Cuzick Model is 3.3%. COMPARISON: Mammography: 03/11/2021 and studies dating back to 11/25/2006. TECHNIQUE: Digital breast tomosynthesis is performed in both the craniocaudal and mediolateral oblique views along with computer-aided detection (CAD). Synthesized 2D images are generated from the tomosynthesis. FINDINGS: There are scattered areas of fibroglandular density (ACR BI-RADS breast composition Category b). There is a stable parenchymal pattern of the left breast. Within the deep nipple line access of the right breast on mediolateral oblique study there is a partially visualized 6 mm density approximately 11 cm from the nipple not definitely identified on previous studies. Recommend spot compression view.This may represent an intramammary lymph node. MM/MM tomosynthesis screening BI IMPRESSION: Right breast density for further evaluation with spot compression view. If there is persistence of density then ultrasound could be performed at that time. ASSESSMENT: BI-RADS 0: Incomplete - Need Additional Imaging Evaluation RECOMMENDATION: 1. Additional views of the right breast 2. Targeted ultrasound if warranted after review of the additional views. 3. Radiology department staff will contact the patient for additional imaging. This patient's information was entered into a reminder system with a target due date for their next mammogram.
--- NOTE | ~2022-03-24 | MM_ITS ---
EXAMINATION: BONE DENSITOMETRY CLINICAL INDICATION: Osteopenia. COMPARISON: Previous BD dated 06/09/2012 and baseline BD dated 11/25/2006. TECHNIQUE: Using a [employer] DXA System (software version: 13.1) manufactured by [employer], dual-energy x-ray absorptiometry was performed of the lumbar spine and left hip. The images are of good technical quality. Summary results are attached. FINDINGS: AP SPINE L1-L3 (excluding L4): The data of L1-L4 has been changed to exclude the L4 vertebral body, because degenerative sclerosis at this level may cause overestimation of lumbar spine density. Current: BMD 0.972 g/cm2, Z-score -0.2, T-score -1.6, osteopenia, 7.5% decrease from previous, 8.3% decrease from baseline (<5% change is not significant). Prior: BMD 1.051 g/cm2. Baseline: BMD 1.060 g/cm2. LEFT FEMUR, NECK: Current: BMD 0.783 g/cm2, Z-score -0.3, T-score -1.8, osteopenia. Prior: BMD 0.763 g/cm2. Baseline: BMD 0.878 g/cm2. LEFT FEMUR, TOTAL: Current: BMD 0.852 g/cm2, Z-score 0.0, T-score -1.2, osteopenia, 2.0% decrease from previous, 17.0% decrease from baseline (<5% change is not significant). Prior: BMD 0.869 g/cm2. Baseline: BMD 1.026 g/cm2. IDENTIFIED RISK FACTORS: Menopause, hysterectomy, osteoporosis, recurrent falls, thiazide. HISTORY OF FRACTURE: None listed. MEDICATIONS: Vitamin D. MM/XR DEXA axial skeleton IMPRESSION: 1. DIAGNOSIS: Osteopenia based on the lowest T-score value of -1.8 in the femoral neck applying World Health Organization criteria. 2. 10-YEAR FRACTURE RISK PREDICTION, FRAX: Major osteoporotic fracture (clinical spine, forearm, hip or shoulder) 10.7%. Hip fracture 1.7%. 3. Treatment Recommendations: NOF guidelines recommend consideration for treatment in postmenopausal women and men age 50 and older presenting with the following: -A hip or vertebral (clinical or morphometric) fracture. -T-score less than or equal to -2.5 at the femoral neck or spine after appropriate evaluation to exclude secondary causes. -Low bone mass at the hip or spine and a 10-year fracture probability by FRAX of greater than or equal to 3% for hip fracture or greater than or equal to 20% for major osteoporotic fracture based on the [place] adapted WHO algorithm. 4. Other Recommendations: All treatment decisions require clinical judgment and consideration of individual patient factors, including patient preferences, comorbidities, previous drug use, risk factors not captured in the FRAX model (e.g. frailty, falls, vitamin D deficiency, increased bone turnover, interval significant decline in bone density) and possible under or overestimation of fracture risk by FRAX. Additional medical evaluation for secondary cause of low bone mineral density may be appropriate. FUTURE SCAN RECOMMENDATION: People with diagnosed cases of osteoporosis or at high risk for fracture should have regular bone mineral density tests. For patients eligible for Medicare, routine testing is allowed once every 2 years. The testing frequency can be increased to one year for patients who have rapidly progressing disease, those who are receiving or discontinuing medical therapy to restore bone mass, or have additional risk factors.
== END 2022-03-24 13:02 | disposition home or self-care (01) ==
LOC: HO.MAMMO 13:01
PROVIDERS: PCP Family Medicine; Visit Provider Family Medicine
DX: Z12.31 Encounter for screening mammogram for malignant neoplasm of breast (principal); Z13.820 Encounter for screening for osteoporosis; Z78.0 Asymptomatic menopausal state; M85.88 Other specified disorders of bone density and structure, other site
CPT/HCPCS: 77063; 77067; 77080

== ENCOUNTER 2022-04-01 14:24 | Outpatient (REF) | payer MEDICARE, MEDICAID, SELFPAY ==
--- NOTE | ~2022-04-01 | MM_ITS ---
EXAMINATION: MM DIAGNOSTIC DIGITAL BREAST TOMOSYNTHESIS, RIGHT US DIAGNOSTIC ULTRASOUND BREAST, RIGHT CLINICAL INFORMATION: Recall from screening for circumscribed nodule posterior right breast on MLO view extending beyond field of view 11 cm from posterior nipple line, suspect incidental node. COMPARISON: Multiple prior mammography, most recent 03/24/2022. TECHNIQUE: Digital breast tomosynthesis is performed. 2D images are generated from the tomosynthesis. The following views are obtained: Spot MLO, exaggerated CC. Ultrasound right breast is targeted to the posterior outer breast using grayscale imaging and color Doppler without and with harmonics. FINDINGS: There are scattered areas of fibroglandular density (ACR BI-RADS breast composition Category b). The spot MLO view reproduce his the finding which also extends beyond the [id number]. In retrospect, there is an incidental node at this location on prior mammography 2014 and likely partially imaged in 2019. Ultrasound demonstrates a benign node posterior 9:00 position 11 cm from nipple measuring 0.6 cm in length. There is normal heron architecture and color flow. Remainder of the ultrasound shows no cystic or solid mass. The chest wall soft tissues appear normal. Results are discussed with the patient at time of visit. MM/MM tomosynthesis added views R IMPRESSION: -Incidental node posterior 9:00 right breast corresponding to finding on recent mammography. ASSESSMENT: BI-RADS 2: Benign RECOMMENDATION: Routine annual mammography screening. This patient's information was entered into a reminder system with a target due date for their next mammogram.
== END 2022-04-01 14:25 | disposition home or self-care (01) ==
LOC: HO.MAMMO 14:24
PROVIDERS: Visit Provider Family Medicine
DX: R92.2 Inconclusive mammogram (principal)
CPT/HCPCS: 76642; 77061; 77065

== ENCOUNTER 2022-07-14 12:06 | Outpatient (REF) | payer MEDICARE, MEDICAID, SELFPAY ==
--- NOTE | ~2022-07-14 | CT_ITS ---
EXAMINATION: CT ABDOMEN AND PELVIS WITH CONTRAST CLINICAL INFORMATION: Nausea, vomiting and weight loss COMPARISON: Previous CT of the abdomen and pelvis September 2021 TECHNIQUE: Multidetector volumetric images were obtained from the superior aspect of the liver through the pubic symphysis following administration 85 mL of Omnipaque 350 intravenous contrast. Sagittal and coronal reformatted images were obtained on the technologist's workstation. Oral contrast: Yes This CT examination was performed using dose optimization techniques as appropriate, variously including the following: *Automated exposure control *Adjustment of mA and/or kV according to patient size (this includes techniques or standardized protocols for targeted exams where dose is matched to indication/reason for exam; i.e. extremities or head) *Use of iterative reconstruction technique DLP: 367 mGy-cm FINDINGS: LUNG BASES: The visualized lung bases are unremarkable. LIVER, GALLBLADDER, AND BILIARY TREE: The liver is normal in size, shape, and attenuation. No focal hepatic lesion or biliary ductal dilatation is present. The gallbladder is unremarkable with no evidence of radiopaque gallstones, gallbladder wall thickening, or obvious pericholecystic inflammatory changes. PANCREAS: Unremarkable. SPLEEN: Unremarkable. ADRENAL GLANDS: Normal right adrenal gland. Stable fullness of the left adrenal gland. KIDNEYS AND URETERS: Question left renal peripelvic cyst versus mild UPJ obstruction. This is similar to previous exam.. Small cyst in the lower pole the right kidney. No imaging follow-up recommended. BLADDER: Unremarkable. GASTROINTESTINAL TRACT: Mild diverticulosis of the colon. Long segment mild wall thickening of the sigmoid colon. This is similar to September 2021 exam as well and may represent muscular hypertrophy related to diverticular disease. Mild diverticulitis or colitis cannot be excluded. No evidence of obstruction, perforation or abscess. Stool throughout the colon suggestive of mild constipation. Appendix not seen. Normal stomach. ABDOMINAL WALL: Small umbilical hernia containing fat. Bilateral inguinal hernias containing fat. LYMPH NODES: Normal. VASCULAR: Atherosclerotic disease. No aneurysm. PELVIC VISCERA: Prominent pelvic vessels questionable for pelvic congestion. Uterus and adnexa are otherwise unremarkable. OSSEOUS STRUCTURES: Degenerative changes of the spine and hip joints. Spondylolysis and spondylolisthesis at L5-S1. CT/CT abdomen pelvis w IV con IMPRESSION: Constipation and diverticulosis of the colon. Persistent wall thickening of the sigmoid colon similar to prior exam September 2021. This may represent muscular hypertrophy related to diverticular disease. Mild diverticulitis or colitis cannot be excluded. Fleischner guidelines were followed.
[2022-07-14] MEDS: iohexoL 350 MG/ML 100 ML INFUS..BTL 85 ML IV (15:22)
[2022-07-14] MEDS: Barium Sulfate Oral (Berry) 450 ML ORAL.SUSP 900 ML PO (15:24)
[2022-07-15 07:19] LABS: Creatinine POC 0.6 mg/dL (0.5-1.4); GFR POC > 60
== END 2022-07-14 12:07 | disposition home or self-care (01) ==
LOC: HO.CT 12:06
PROVIDERS: PCP Family Medicine; Visit Provider Family Medicine
DX: R63.4 Abnormal weight loss (principal)
CPT/HCPCS: 74177; 82565; Q9967

== ENCOUNTER 2023-08-30 11:43 | Outpatient (REF) | payer MEDICARE, MEDICAID, SELFPAY ==
[2023-08-30 13:12] LABS: Hematocrit 39.5 % (37.0-47.0); Hemoglobin 13.2 g/dl (12.0-16.0); Mean Corpuscular HGB Conc 33.4 g/dl (31.0-35.0); Mean Corpuscular Hemoglobin 30.9 pg (27.0-33.0); Mean Corpuscular Volume 92.5 fL (80.0-98.0); Mean Platelet Volume 9.6 fL (9.4-12.3); Platelet Count 284 X10*3/uL (160-400); Red Blood Count 4.27 X10*6/uL (4.20-5.50); Red Cell Distribution Width 12.7 % (11.0-16.0); White Blood Count 6.3 X10*3/uL (4.8-10.8)
[2023-08-30 13:30] LABS: Estimated Average Glucose 114 mg/dL; Hemoglobin A1c % 5.6 % (<6.0)
[2023-08-30 13:38] LABS: Alanine Aminotransferase 13 U/L (0-31); Albumin Level 4.1 g/dL (3.5-5.0); Alkaline Phosphatase 92 U/L (39-117); Anion Gap 14 (12-20); Aspartate Amino Transferase 20 U/L (5-31); Bilirubin Direct 0.2 mg/dL (0.0-0.5); Bilirubin Total 0.6 mg/dL (0.0-1.0); Blood Urea Nitrogen 11 mg/dL (9-16); Calcium 9.8 mg/dL (8.4-10.2); Carbon Dioxide 29 mmol/L (22-29); Chloride 100 mmol/L (96-108); Cholesterol 157 mg/dL (<200); Estimated Glomerular Filt Rate > 60; Glucose Random 100 mg/dL (60-115); HDL Cholesterol 56 mg/dL (>40); Iron 73 mcg/dL (30-160); LDL Cholesterol Calculated 86 mg/dL (<100); Percent Iron Saturation 27 % (15-50); Potassium 3.9 mmol/L (3.3-5.1); Sodium 139 mmol/L (135-145); Total Iron Binding Capacity 274 mcg/dL (228-428); Total Protein 7.6 g/dL (6.5-8.0); Triglycerides 79 mg/dL (<150); Unsaturated Iron Binding 201 ug/dL
[2023-08-30 13:42] LABS: Thyroid Stimulating Hormone 1.43 uIU/mL (0.32-4.0); Vitamin D 25-OH Total 49.6 ng/mL (>30)
[2023-08-30 13:44] LABS: Creatinine Urine 109.71 mg/dL; Microalbum/Creatinine Ratio Ur 7.2 ug/mg cr (<30)
[2023-08-30 14:03] LABS: Ferritin 77 ng/mL (10-250)
[2023-08-30 14:18] LABS: Folate 6.5 ng/mL (> or = 4.0); Vitamin B12 397 pg/mL (200-900)
[2023-08-30 14:35] LABS: CT PCR NOT DETECTED (Not Detect.); NG PCR NOT DETECTED (Not Detect.)
[2023-08-31 04:14] LABS: HBc Num1 0.23 S/CO (0.00-0.79); Hepatitis B Core Antibody Nonreactive (Nonreactive); ~Hepatitis C Antibody Nonreactive (Nonreactive)
[2023-08-31 04:15] LABS: Hepatitis A Antibody IgG Nonreactive (Nonreactive)
[2023-08-31 04:16] LABS: HBS Num1 0.29 mIU/mL (0-7.99); HBsAGNum1 0.29 S/CO (0.00-0.99); HIV AB/AG Nonreactive (Nonreactive); HIV Num 1 0.05 S/CO (0.00-0.99); Hepatitis B Surface Antigen Negative (Negative); ~Hepatitis B Surface Antibody NONREACTIVE (Nonreactive)
[2023-09-01 07:09] LABS: RPR Rapid Plasma Reagin NON-REACTIVE (NON-REACTIVE)
== END 2023-08-30 11:44 | disposition home or self-care (01) ==
LOC: HO.HHCL 11:43
PROVIDERS: Visit Provider Family Medicine
DX: Z00.00 Encounter for general adult medical examination without abnormal findings (principal); R79.9 Abnormal finding of blood chemistry, unspecified; I10 Essential (primary) hypertension; E78.49 Other hyperlipidemia; I25.10 Atherosclerotic heart disease of native coronary artery without angina pectoris; F33.9 Major depressive disorder, recurrent, unspecified; K21.9 Gastro-esophageal reflux disease without esophagitis; N39.46 Mixed incontinence; R29.898 Other symptoms and signs involving the musculoskeletal system; R63.4 Abnormal weight loss; R68.89 Other general symptoms and signs; Z11.59 Encounter for screening for other viral diseases; Z20.2 Contact with and (suspected) exposure to infections with a predominantly sexual mode of transmission; Z72.89 Other problems related to lifestyle
CPT/HCPCS: 36415; 80048; 80061; 80076; 82043; 82306; 82570; 82607; 82728; 82746; 83036; 83540; 84439; 84443; 85027; 86592; 86704; 86706; 86708; 86803; 87340; 87389; 87491; 87591